=== PATIENT | female | born 1980 | race Caucasian/White ===

== ENCOUNTER 2017-06-15 20:40 | Emergency (ER) | payer MEDICAID ==
[2017-06-15] MEDS ORDERED: methylPREDNISolone SOD SUCCI 125 MG/2 ML VIAL IM ONE (20:44)
[2017-06-15] MEDS ORDERED: IPRATROPIUM-ALBUTEROL 3 ML NEB INHALATION STA (20:44)
--- NOTE | 2017-06-15 20:57 | XR ---
EXAMINATION TYPE: XR chest 2V DATE OF EXAM: 06/15/2017 COMPARISON: 03/18/2013 HISTORY: Cough and congestion TECHNIQUE: Frontal and lateral views of the chest are obtained. FINDINGS: Heart and mediastinum are normal. Lungs are clear. Diaphragm is normal. Bony thorax is int act. IMPRESSION: Normal chest. No change.
[2017-06-15 21:05] VITALS: BP 136/84; PULSE 96; TEMP 99
--- NOTE | 2017-06-15 21:15 | ED ---
SOB HPI - General Stated Complaint: URI Time Seen by Provider: 06/15/17 20:43 - History of Present Illness Initial Comments: 36-year-old female patient presents to emergency department today with complaints of generalized weakness, cough, and chest burning. Patient states that symptoms started morning. States that she is woke up feeling generally weak, developed a cough throughout the day. She states she is coughing up green sputum. States that she was seen at urgent care on and diagnosed with croup. She states that symptoms do not seem to be improving. She states she becomes short of breath with activity. She states that she has felt that she has had a fever over the last couple of days. She has not checked her temperature. Denies any significant nasal congestion. Denies any sore throat or ear pain. Patient denies any recent rash, chest pain, abdominal pain, nausea, vomiting, diarrhea, constipation, back pain, numbness, tingling, dizziness, weakness, hematuria, dysuria, urinary urgency, urinary frequency, headache, visual changes, or any other complaints. She does admit to smoking cigarettes. She is that she has had pneumonia in the past and has felt very similar to this. - Related Data Previous Rx's Medication Instructions Recorded Albuterol Sulfate [Proair Hfa] 1 - 2 puff INHALATION Q6HR PRN #1 06/15/17 inhaler guaiFENesin-DM 600/30MG [Mucinex 1 each PO Q12HR #14 tab.er.12h 06/15/17 Dm] predniSONE 50 mg PO DAILY #7 tablet 06/15/17 Allergies Allergy/AdvReac Type Severity Reaction Status Date / Time No Known Allergies Allergy Unverified 06/15/17 20:56 Review of Systems ROS Statement: Those systems with pertinent positive or pertinent negative responses have been documented in the HPI. ROS Other: All systems not noted in ROS Statement are negative. General Exam Limitations: no limitations General appearance: alert, in no apparent distress, other (Well-developed, well- nourished adult female patient in no acute distress. Vital signs upon admission are temperature 90.9, pulse 96, respirations 16, blood pressure 136/84 , pulse ox 94% on room air.) ENT exam: Present: normal exam, normal oropharynx, mucous membranes moist, TM's normal bilaterally Neck exam: Present: normal inspection. Absent: tenderness, meningismus, lymphadenopathy Respiratory exam: Present: wheezes (Diffuse expiratory wheezing posteriorly.). Absent: respiratory distress, rales, rhonchi, stridor Cardiovascular Exam: Present: regular rate, normal rhythm, normal heart sounds. Absent: systolic murmur, diastolic murmur, rubs, gallop, clicks GI/Abdominal exam: Present: soft, normal bowel sounds. Absent: distended, tenderness, guarding, rebound, rigid Back exam: Present: normal inspection Neurological exam: Present: alert, oriented X3, CN II-XII intact Psychiatric exam: Present: normal affect, normal mood Skin exam: Present: warm, dry, intact, normal color. Absent: rash Course Vital Signs 06/15/17 06/15/17 06/15/17 21:00 21:17 21:24 Temperature 99.0 F Pulse Rate 96 96 Respiratory 16 20 Rate Blood Pressure 136/84 O2 Sat by Pulse 94 L Oximetry Medical Decision Making - Medical Decision Making 36-year-old female patient presented for evaluation of cough, congestion, and sore throat. Chest x-ray was obtained and showed no acute pulmonary process. Patient did have some wheezing on physical exam. She states she did have improvement after receiving a DuoNeb here in the department. She was given IM Solu-Medrol. She was diagnosed with acute bronchitis. She will be discharged home with a prescription for Mucinex D, pro-air, and steroid. She is instructed to follow-up with her primary care physician for recheck in 1-2 days. She is instructed to return here immediately for any new, worsening, or concerning symptoms. Patient verbalizes understanding and agrees with this plan. - Lab Data Lab Results 06/15/17 Range/Units 21:10 Influenza Type A RNA Not Detected (Not Detectd) Influenza Type B (PCR) Not Detected (Not Detectd) - Radiology Data Radiology results: report reviewed, image reviewed Two-view x-ray of the chest was obtained and showed the heart and mediastinum are normal. Lungs are clear. Diaphragm is normal. Bony thorax is intact. Impression by Dr. Singh shows normal chest. No change. Disposition Clinical Impression: Acute bronchitis Disposition: HOME SELF-CARE Condition: Good Instructions: Acute Bronchitis (ED) Additional Instructions: Take medications as directed. Return here immediately for any new, worsening, or concerning symptoms. Follow-up with her primary care physician for recheck in 1-2 days. Prescriptions: Albuterol Sulfate [Proair Hfa] 1 - 2 puff INHALATION Q6HR PRN #1 inhaler PRN Reason: Shortness of breath/Wheezing guaiFENesin-DM 600/30MG [Mucinex Dm] 1 each PO Q12HR #14 tab.er.12h predniSONE 50 mg PO DAILY #7 tablet Referrals: Maurilio Rainey MD [Primary Care Provider] - 1-2 days Time of Disposition: 21:45
[2017-06-15 21:26] VITALS: RESP 20
== END 2017-06-15 21:58 | disposition home or self-care (01) ==
LOC: EC 20:40
DX: J20.9 Acute bronchitis, unspecified (principal); F17.210 Nicotine dependence, cigarettes, uncomplicated
CPT/HCPCS: 94640; 87502; 71020; 99284; 96372; J2930

== ENCOUNTER → 2020-09-20 | Outpatient (CLI) | payer MEDICAID ==
[2020-09-20 10:09] LABS: Basophils # (A) 0.1 k/uL (0-0.2); Basophils % (A) 1 %; Eosinophils # (A) 0.3 k/uL (0-0.7); Eosinophils % (A) 2 %; HCT 39.8 % (34.0-46.0); HGB 13.3 gm/dL (11.4-16.0); Lymphocytes # (A) 2.9 k/uL (1.0-4.8); Lymphocytes % (A) 25 %; MCH 30.8 pg (25.0-35.0); MCHC 33.3 g/dL (31.0-37.0); MCV 92.6 fL (80.0-100.0); Mean Platelet Volume 6.7; Monocytes # (A) 0.6 k/uL (0-1.0); Monocytes % (A) 5 %; Neutrophils # (A) 7.5 k/uL (1.3-7.7); Neutrophils % (A) 65 %; Platelet Count 334 k/uL (150-450); RDW 12.6 % (11.5-15.5); WBC 11.5 k/uL (3.8-10.6)
[2020-09-21 06:35] LABS: African American GFR (CKD) 124.7 (60.0-200.0); Albumin 4.3 g/dL (3.80-4.90); Albumin/Globulin Ratio 2.05 (1.60-3.17); Anion Gap 4.2 mmol/L (4.00-12.00); BUN/Creat Ratio 25.71 Ratio (12.00-20.00); Calcium 9.3 mg/dL (8.7-10.3); Carbon Dioxide 29.8 mmol/L (21.6-31.8); Chol/HDL Ratio 4.17; Globulin 2.1 g/dL (1.6-3.3); LDL Cholesterol,Calculated 128.8 mg/dL (0.0-131.0); Magnesium 1.9 mg/dL (1.5-2.4); Non-African American GFR(CKD) 107.6 (60.0-200.0); Potassium 4.5 mmol/L (3.5-5.5); Total Bilirubin 0.2 mg/dL (0.2-1.2); Total Protein 6.4 g/dL (6.2-8.2); VLDL Calculation 23.2 mg/dL (5.00-40.00)
[2020-09-21 06:43] LABS: T4, Free (Free Thyroxine) 0.9 ng/dL (0.80-1.80)
== END | disposition home or self-care (01) ==
LOC: LABWHC1 09:29
PROVIDERS: ATTEND Nurse Practitioner Women's Health
DX: Z00.00 Encounter for general adult medical examination without abnormal findings (principal); D64.9 Anemia, unspecified; R53.83 Other fatigue
CPT/HCPCS: 36415; 80053; 80061; 83735; 84439; 84443; 85025